=== PATIENT | male | born 1935 | race Caucasian/White ===

== ENCOUNTER 2016-04-20 18:19 | Emergency (ER) | payer MEDICARE ==
[~2016-04-20] VITALS: Ht 172.7 cm; Wt 77.3 kg
[~2016-04-20 18:19] MED LIST: ACET600C5 PO; ALBU18HF INH; DILT-17 PO; FLUT12AE10 IH; MULT-56 PO; OMEG300C3 PO; SALM50DI IH; TRIA1CAP5 PO; WARF5TAB7 PO
[2016-04-20 18:25] VITALS: BP 179/83; PULSE 61; RESP 16; O2SAT 99
[2016-04-20 20:05] LABS: BASOPHILS % (AUTO) 0.5 % (0-3); EOSINOPHILS % (AUTO) 3.6 % (0-5); MONOCYTES % (AUTO) 13.7 % (4-12); Mean Corpuscular Hemoglobin 27.9 pg (27.0-35.0); Mean Corpuscular Volume 88.7 fL (81-100); NEUTROPHILS % (AUTO) 55.4 % (40-74); Platelet Count 247 bil/L (150-400)
[2016-04-20 20:08] LABS: INR 1.96 ratio
--- NOTE | 2016-04-20 20:08 | ED.REPORT ---
HPI-Neurologic Deficit Date of Service Apr 20, 2016 ED Provider: Dr. Issa Gomez MD An 80 year old male with a history of CAD and A-fib anticoagulated on Warfarin presents to the ED complaining of an altered mental status that began a few days ago. 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 Son noticed a new bruise to the patient's face and patient is unsure how the facial bruise occurred. Last known normal was 4 days ago. Patient was seen at [facility] 2 months ago for "internal bleeding". Patient denies any headache, face pain or any other current pains. Nursing Notes Stated Complaint: POSSIBLE COGNITIVE CHANGES Chief Complaint: General Complaint Nursing Notes Reviewed: Yes Allergies: Coded Allergies: No Known Allergies (Verified Allergy, Unknown, 04/20/16) Scheduled Diltiazem ER (Diltiazem ER) 120 Mg Cap.er.24h 120 MG PO DAILY Fluticasone Propionate (Flovent HFA 220 mcg) 12 Gm Aer.w.adap 2 PUFFS IH BID Multivitamin (Daily Vitamin) 1 Each Tablet 1 EACH PO DAILY Salmeterol Xinafoate (Serevent Diskus) 50 Mcg/Puff Inhaler 1,400 MCG IH BID Triamterene/HCTZ 37.5-25 mg (Triamterene/HCTZ 37.5-25 mg) 1 Each Capsule 1 EACH PO DAILY Warfarin Sodium (Warfarin Sodium) 5 Mg Tablet 5 MG PO DAILY Scheduled PRN Albuterol Sulfate (Ventolin HFA Inhaler) 200 Puff/18 Gm Inhaler 2 PUFF INH Q4 PRN PRN For Wheezing Miscellaneous Medications Acetylcysteine (Z-Ghnrdq-y-Cysteine) 600 Mg Capsule 600 MG PO Eden-3 Fatty Acids (Fish Oil) 300 Mg Capsule 300 MG PO General Time Seen by Provider: 20:13 Chief Complaint Mental status change Hx Obtained From: Patient, Son Arrived By: Walk-in Sudden in Onset?: No Onset Occurred: 3 days ago Symptom Duration: Since onset Progression Since Onset: Unchanged Location: No: Head Associated with: Denies: Headache Additional Notes: Abnormal behavior Pertinent Negative: Pt denies other symptoms Recent Healthcare: No recent doctor visit, No recent hospitalization Risk Factors NIH Stroke Scale Level of Consciousness: Alert and responsive (0) Ask Month & Age: Both questions right (0) Open/Close Eyes/Hand Deputy Director Of Finance: Performs both tasks (0) Horizontal EO Movements: None (0) Visual Harkins: No visual loss (0) Facial Palsy: Normal symmetry (0) Right Arm Motor Drift (10s): No drift 10 sec (0) Left Arm Motor Drift (10s): No drift 10 sec (0) Right Leg Motor Drift (5s): No drift 5 sec (0) Left Leg Motor Drift (5s): No drift 5 sec (0) Limb Ataxia FNF/Heel-Ng: No ataxia (0) Sensation (Arms/Legs/Face): No sensory loss (0) Language Aphasia: No aphasia, normal (0) Dysarthria: No dysarthria, normal (0) Extinction/Inattention: No exctinct/inattent (0) NIHSS Score: 0 Time NIHSS Performed: 20:25 Past Medical History Past Medical History Reports: Coronary artery disease Reports: Atrial fibrillation Past Surgical History Left heart catheterization. Coronary angiography. Right femoral arterial angiography. Smoking History Unknown if Ever Smoker Social History Other Social History: Good social support, Local resident Ambulatory Status Walker Review of Systems Bruise to the patient's face Constitutional: Denies: Chills, Fever Respiratory: Denies: Shortness of breath Cardiovascular: Denies: Chest pain GI: Denies: Abdominal pain, Nausea, Vomiting Neurologic: Denies: Change LOC, Headache Psychiatric: Reports: Change mental status Complete sys rev & neg: except as marked. Physical Exam Initial Vital Signs Vital Signs (First) Date Time Temp Pulse Resp B/P Pulse Ox O2 Delivery O2 Flow Rate FiO2 04/20/16 18:25 36.2 61 16 179/83 99 Room Air Initial VS: Reviewed Extremities: Vascular intact, Neuro intact, No swelling, No tenderness Skin: Warm, Dry, No cyanosis Psychiatric: Mood/affect normal, Behavior normal, Normal thought content General/Constitutional: Awake, Alert Head / Eyes: Atraumatic, Normocephalic, PERRL HEAD: Yellow bruise to mandible Respiratory / Chest: Atraumatic, Breath sounds NL, Breath sounds = bilat Cardiovascular: Heart rate NL (Rate of 80 bpm ), Heart sounds NL Heart Rate / Rhythm: Positive: Irregular rhythm CARDIO: No edema Neurologic: Oriented X3 (Oreinted x4), Speech NL, No motor deficits, No sensory deficits, CN II - XII intact, Reflexes equal bilat NEURO: No focal deficits Rapid speech Pt unsure how he recieved the bruise GCS: 15 NIH Stroke Scale = 0 Interpretation & Diagnostics Lab Results Interpretation Result Diagram: 04/20/16192204/20/161922 Test 04/20/16 19:23 04/20/16 21:26 White Blood Count 6.4th/mm3 (3.8-10.1) Red Blood Count 4.44mil/mm3 (4.40-5.80) Hemoglobin 12.4g/dL (13.8-17.2) Hematocrit 39.4% (41.0-50.0) Mean Corpuscular Volume 88.7fL (81-100) Mean Corpuscular Hemoglobin 27.9pg (27.0-35.0) Mean Corpuscular Hemoglobin Concent 31.5% (32.0-37.0) Red Cell Distribution Width 15.7% (12.3-15.4) Platelet Count 247bil/L (150-400) Neutrophils (%) (Auto) 55.4% (40-74) Lymphocytes (%) (Auto) 26.6% (14-46) Monocytes (%) (Auto) 13.7% (4-12) Eosinophils (%) (Auto) 3.6% (0-5) Basophils (%) (Auto) 0.5% (0-3) Prothrombin Time 21.3sec (8.1-12.5) Prothromb Time International Ratio 1.96ratio Sodium Level 140mEq/L (134-144) Potassium Level 4.1mEq/L (3.5-5.2) Chloride Level 102mEq/L (97-108) Carbon Dioxide Level 25mmol/L (18-29) Blood Urea Nitrogen 27mg/dL (8-27) Creatinine 1.37mg/dL (0.76-1.27) Estimat Glomerular Filtration Rate 53mL/min (>59) Glucose Level 96mg/dL (60-99) Calcium Level 9.6mg/dL (8.5-10.1) Magnesium Level 1.8mg/dL (1.6-2.6) Total Bilirubin 0.6mg/dL (0.0-1.2) Aspartate Amino Transf (AST/SGOT) 36U/L (0-50) Alanine Aminotransferase (ALT/SGPT) 22U/L (0-44) Alkaline Phosphatase 77U/L (25-160) Troponin T < 0.010ug/L (0.0-0.011) Total Protein 7.2g/dL (6.4-8.4) Albumin 3.9g/dL (3.4-5.0) Hold Plascencia Top Tube Received (Received) Urine Color Yellow (YELLOW) Urine Appearance Clear (CLEAR,HAZY) Urine pH 5.5 (5.0-8.0) Urine Specific Excel 1.028 (1.003-1.035) Urine Protein Negativemg/dL (NEG,TRACE) Urine Glucose (UA) Negativemg/dL (NEGATIVE) Urine Ketones Negativemg/dL (NEGATIVE) Urine Occult Blood Trace (NEGATIVE) Urine Nitrite Negative (NEGATIVE) Urine Bilirubin Negative (NEGATIVE) Urine Urobilinogen Normalmg/dL (NORMAL) Urine Leukocyte Esterase Negative (NEGATIVE) Urine RBC 0-2/hpf (0-2) Urine WBC 0-5/hpf (0-5) Urine Epithelial Cells None/hpf (NONE-MOD) Urine Crystals None seen (NONE SEEN) Urine Bacteria Few/hpf (NONE-FEW) Urine Hyaline Casts None/lpf (NONE) Urine Granular Casts None seen (NONE SEEN) Urine Waxy Casts None seen (NONE SEEN) Urine Red Blood Cell Casts None seen (NONE SEEN) Urine White Blood Cell Casts None seen (NONE SEEN) Urine Mucus Present (None Seen) Urine Trichomonas None seen (NONE SEEN) Urine Yeast None (NONE SEEN) Urinalysis Comment None Urine Culture Reflexed Not indicated Pulse Oximetry Interpretation Pulse Oximetry: Pulse Ox normal ECG Interpretation ECG Interpretation: Sinus rhythm Rate 57 Atrial premature complexes Time: 19:29 Interpreted by: ED physician Rhythm Strip Interpretation : Time: 20:28 Rhythm Strip Interpretation: Interpreted by me, Normal sinus rhythm X-Ray Chest Interpretation Chest Xray Interpretation: IMPRESSION: 1. No acute cardiopulmonary disease. Dictated by: Aron Tovar M.D. on 04/20/2016 at 21:10 Interpretation / Wet Read by: Interpret - Radiologist CT Head Interpretation IMPRESSION: 1. Large left holohemispheric subdural hematoma with extensive associated mass effect as described including subfalcine and transtentorial herniation. Findings discussed with Dr. Gomez on 04/20/16 at 8:55 PM. 2. Mild cerebral volume loss and chronic white matter small vessel ischemic changes. 3. Sinus mucosal disease with evidence of acute sinusitis in the maxillary sinuses. Dictated by: Aron Tovar M.D. on 04/20/2016 at 20:58 Interpretation / Wet Read by: Interpret - Radiologist Re-Eval/Medical Decision Med Decision/Clinical Course 80-year-old male presents with rather insidious onset of altered mental status per family. Evidently his last known to be well on Tuesday. Family caregivers contacted his son because he seemed to be just off today. His son found that his father did not check his mail. His father is reading Tuesday's newspaper today which seemed abnormal in. Mr. Rosen himself had no recollection of any injury. He did have bruising over his right mandible. Again that he was alert and lucid. No focal stroke deficits. No clinical signs of herniation syndrome. He is on warfarin. His INR was 1.96. CT scan showed an impressive subdural hematoma with midline shift and herniation. We immediately reversed his INR with [facility] and vitamin K. Arrange for transfer to [facility]. Mr. Rosen was transferred in stable condition. Re-Evaluation/Progress #1: Time of Eval: 21:02 Patient Status: Condition unchanged Evaluation: Neurologic nonfocal Re-Evaluation/Progress Note: Patient is rechecked. He is informed of his lab results, CT results and diagnosis. All questions are addressed. He understands and agrees with the current treatment plan to transfer. Patient denies any history of TIA or blood clot. Re-Evaluation/Progress #2: Time of Eval: 21:28 Patient Status: Condition unchanged Re-Evaluation/Progress Note: Patient is rechecked. He is informed of the plan to contact [facility] for transfer. All questions are rechecked. NIH scale = 0 NIH Stroke Scale : Level of Consciousness: Alert and responsive (0) Ask Month & Age: Both questions right (0) Open/Close Eyes/Hand Deputy Director Of Finance: Performs both tasks (0) Horizontal EO Movements: None (0) Visual Harkins: No visual loss (0) Facial Palsy: Normal symmetry (0) Right Arm Motor Drift (10s): No drift 10 sec (0) Left Arm Motor Drift (10s): No drift 10 sec (0) Right Leg Motor Drift (5s): No drift 5 sec (0) Left Leg Motor Drift (5s): No drift 5 sec (0) Limb Ataxia FNF/Heel-Ng: No ataxia (0) Sensation (Arms/Legs/Face): No sensory loss (0) Language Aphasia: No aphasia, normal (0) Dysarthria: No dysarthria, normal (0) Extinction/Inattention: No exctinct/inattent (0) NIHSS Score: 0 Time NIHSS Performed: 21:27 Consultation : Referral / Consult Name: [facility] Call Returned at: 21:20 Rn New Grad: Will see patient, Agrees with eval, Agrees with plan, Accepts admit Note: Dr. Rios accepts the patient and agrees with current treatment plan. Counseled Regarding: Diagnosis, Lab results, Need for transfer Discharge & Departure Impression: Primary Impression: Subdural hematoma Additional Impression: Coagulopathy Disposition: Transfer, Acute Care Facility ([facility]) Discharge Condition All VS Reviewed: Yes Condition: Critical Referrals: Ashok Coleman MD (PCP) Crit Care Except Billable Proc Time Spent: 75-104 minutes (100 minutes) Services Performed: Patient management by me, Time spent at bedside, Reviewing test results, Reviewing imaging, Discussing patient care, Documentation in record, Time with fam/surrogate Scribe Attestation Portions of this note were transcribed by Marlo Garcia. I, Dr. Gomez personally performed the history, physical exam and medical decision-making; I reviewed and confirmed the accuracy of the information in the transcribed note. Signed by: Yuliet Willams, 04/20/16 [id number]. copies to: Ashok Coleman MD, Todd P DO Apr 20, 2016 20:08 MALRO GARICA Apr 20, 2016 20:20
[2016-04-20 20:20] LABS: TROPONIN T < 0.010 ug/L (0.0-0.011)
[2016-04-20 20:25] LABS: Magnesium 1.8 mg/dL (1.6-2.6)
[2016-04-20 21:03] VITALS: BP 158/70; PULSE 56; RESP 16; O2SAT 98
[2016-04-20] MEDS ORDERED: Phytonadione (Adult) 10 MG in Dextrose 5%-Pha MIX 50 ML IV ONE (21:05)
--- NOTE | 2016-04-20 21:07 | DRSVH ---
PROCEDURE: CT BRAIN WITHOUT CONTRAST ([id number]) INDICATIONS: altered mental status, warfarin use, bruised face TECHNIQUE: Noncontrast 4.5 mm thick angled axial sections acquired from the foramen magnum to the vertex, with c oronal reformats. COMPARISON: None. FINDINGS: Image quality: Excellent. Brain: There is a large left holohemispheric subdural hematoma measuring up to 1.8 cm in thickness. The hematoma is slightly hyperdense in attenuation relative to isddiqui matter. There is associated ext ensive mass effect including subfalcine herniation with midline shift of approximately 1.2 cm to the right. There is also effacement of the basilar cisterns consistent with mild left transtentorial her niation. There is mild underlying cerebral volume loss as well as mild chronic white matter small ve ssel ischemic changes. Skull and face: Calvarium and visualized facial bones appear intact. Sinuses: Visualized sinuses demonstrate moderate mucosal thickening within the right maxillary sinus with mild mucosal thickening in the left maxillary, bilateral ethmoid, and sphenoid sinuses. Air-fl uid levels are present in the maxillary sinuses. Findings are consistent with acute sinusitis. The mastoid air cells are clear. IMPRESSION: 1. Large left holohemispheric subdural hematoma with extensive associated mass effect as described i ncluding subfalcine and transtentorial herniation. Findings discussed with Dr. Gomez on 04/20/16 at 8: 55 PM. 2. Mild cerebral volume loss and chronic white matter small vessel ischemic changes. 3. Sinus mucosal disease with evidence of acute sinusitis in the maxillary sinuses. Dictated by: Aron Tovar M.D. on 04/20/2016 at 20:58 Approved by: Aron Tovar M.D. on 04/20/2016 at 21:06
--- NOTE | 2016-04-20 21:13 | DRSVH ---
PROCEDURE: X-RAY CHEST ONE VIEW, PORTABLE ([id number]) INDICATIONS: change in mental status TECHNIQUE: One view of the chest was acquired. COMPARISON: [facility], , CHEST 1VW (PORTABLE), 03/03/2013, 1:06. FINDINGS: Surgical changes and devices: There are postsurgical changes in the mediastinum with multiple median sternotomy wires. Lungs and pleura: No pleural effusions or pneumothorax. Lungs are clear. Mediastinum: Mediastinal contours appear normal. Heart size is normal. Bones and chest wall: Multiple old healed left her fractures are redemonstrated. Overlying soft tiss ues appear unremarkable. IMPRESSION: 1. No acute cardiopulmonary disease. Dictated by: Aron Tovar M.D. on 04/20/2016 at 21:10 Approved by: Aron Tovar M.D. on 04/20/2016 at 21:11
[2016-04-20] MEDS ORDERED: PROTHROMBIN COMPLEX IV ONE ×2 (21:40→21:43)
[2016-04-20 21:45] LABS: APPEARANCE,URINE CLEAR (CLEAR,HAZY); COLOR,URINE YELLOW (YELLOW); OCCULT BLOOD,URINE TRACE (NEGATIVE); PH,URINE 5.5 (5.0-8.0); UROBILINOGEN,URINE NORMAL (NORMAL)
[2016-04-20 22:15] VITALS: BP 154/74; PULSE 56; RESP 18; O2SAT 100
== END 2016-04-20 22:15 | disposition short-term general hospital (02) ==
LOC: SED 18:19
DX: S06.5X0A Traumatic subdural hemorrhage without loss of consciousness, initial encounter (principal); X58.XXXA Exposure to other specified factors, initial encounter; Y92.9 Unspecified place or not applicable; Y93.9 Activity, unspecified; Y99.9 Unspecified external cause status; D68.9 Coagulation defect, unspecified; R40.2410 Glasgow coma scale score 13-15, unspecified time; I25.10 Atherosclerotic heart disease of native coronary artery without angina pectoris; I48.91 Unspecified atrial fibrillation; Z79.01 Long term (current) use of anticoagulants
CPT/HCPCS: 36415; 70450; 71010; 80053; 81000; 83735; 84484; 85025; 85610; 93005; 96374; 96375; 99291; 99292; C9132; J3430